=== PATIENT | female | born 1940 | race Two or more races ===

== ENCOUNTER 2016-11-20 09:55 | Day surgery (SDC) | payer MEDICARE, BC ==
--- NOTE | 2016-11-17 22:32 | HP ---
ADMITTING HISTORY AND PHYSICAL: DATE OF ADMISSION: 11/20/16 ADMITTING DIAGNOSES: 1. Left hydronephrosis. 2. 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 PLANNED PROCEDURE: Left retrograde, left ureteroscopy, ureteral biopsy, and left stent insertion. SURGEON: Bari Gupta MD HISTORY OF PRESENT ILLNESS: Yue Hogue is a 76-year-old nonsmoking female who has had left lower quadrant pain for the last 3 to 4 months. She was recently evaluated by Aline Eddy and a pelvic ultrasound was obtained. During the pelvic ultrasound, she was noted to have left hydronephrosis and a dilated left ureter. I saw her and subsequently obtained a CT urogram because of suspicion of some sort of chronic process causing the left hydronephrosis and the CT urogram is highly suspicious for transitional cell neoplasm involving the left ureter. She is now being brought in for further evaluation and management. PAST MEDICAL HISTORY: Significant for: 1. Diabetes mellitus. 2. Hypertension. 3. High cholesterol. PAST SURGICAL HISTORY: Unremarkable. MEDICATIONS: On admission: 1. Tylenol 500 mg p.r.n. for pain. 2. Amlodipine 5 mg daily. 3. Atorvastatin 20 mg daily. 4. Famotidine 10 mg daily. 5. Hydrochlorothiazide 12.5 mg daily. 6. Metformin 500 mg, which is currently on hold. ALLERGIES: An intolerance is ASPIRIN. SOCIAL HISTORY: Smoking history: Nonsmoker. PHYSICAL EXAMINATION GENERAL: Reveals a frail elderly lady. VITAL SIGNS: Blood pressure is 150/80, pulse 84 per minute, temperature 97.1, oxygen saturation 98% on room air. LUNGS: Clear bilaterally. CARDIOVASCULAR: Regular rate and rhythm. S1, S2. ABDOMEN: Soft with mild left flank tenderness. I reviewed the CT scan and had a detailed discussion with the patient and her regarding the probable diagnosis of transitional cell carcinoma involving the left ureter. Obviously, I will need to visually inspect the ureter and also try to obtain a biopsy to get histologic diagnosis and also to try and relieve the obstruction by placing a stent in the left ureter. I have also explained to them that there is a small possibility that I may not be able to place a stent depending on the extent of the mass and the degree of obstruction, and in that case she may require placement of a left nephrostomy tube. PLAN: Left ureteroscopy, left retrograde, left ureteral biopsy and left stent insertion. CC: Mukesh Felton MD; Aline Eddy NP * [id number]/[facility] #: [id number] [facility] HOSPITALYoanna
[~2016-11-20 09:55] MED LIST: Buffered Lidocaine 1% SYR 3ML* 3 ML/SYR SYRINGE INTRADERM ONE; Famotidine IV* 10 MG/ML 2 ML (20 mg) IV ONE; Iohexol 180 (CONTRAST) 10 ML SDV IV ONE; NS 0.9% 1000 ML* 1,000 ML IV SCH
[2016-11-20] MEDS ORDERED: Famotidine IV* 10 MG/ML 2 ML (20 mg) ONE (10:09)
[2016-11-20] MEDS ORDERED: Levofloxacin 500 MG IVPREMIX(* 500 MG/100 ML BAG IVPB ONE (10:09)
[2016-11-20] MEDS ORDERED: fentaNYL* 50 MCG/ML 2 ML VIAL (100 MCG VIAL) ONE (10:52)
[2016-11-20] MEDS ORDERED: Midazolam* 1 MG/ML 2 ML VIAL (2 MG) ONE (10:52)
[2016-11-20] MEDS ORDERED: Ketorolac INJ* 30 MG/ML 1 ML VIAL ONE (12:14)
[2016-11-20] MEDS ORDERED: Propofol* 10 MG/ML 20 ML BTL IV PUSH ONE (12:14)
[2016-11-20] MEDS ORDERED: Dexamethasone IV* 4 MG/ML 1 ML (4 MG) ONE (12:14)
[2016-11-20] MEDS ORDERED: Ondansetron INJ* 2 MG/ML VIAL ONE (12:14)
[2016-11-20] MEDS ORDERED: Lidocaine 2% PF * 5 ML VIAL ONE (12:14)
[2016-11-20] MEDS ORDERED: oxyCODONE/Acetamin 5/325 MG* TAB PO PRN (12:21)
[2016-11-20] MEDS ORDERED: Acetaminophen TAB* 325 MG PO PRN (12:21)
[2016-11-20] MEDS ORDERED: DiMENhydriNATE IV* 50 MG/ML VIAL IV PUSH PRN (12:21)
[2016-11-20] MEDS ORDERED: Furosemide IV* 10 MG/ML 2 ML VIAL (20 MG) ONE (12:30)
[2016-11-20] MEDS ORDERED: Iohexol 180 (CONTRAST) 10 ML SDV IV ONE (13:33)
[2016-11-20] MEDS ORDERED: HYDROmorphone INJ* 1 MG/ML CARPUJECT SYRINGE ONE (13:47)
[2016-11-20] MEDS: HYDROmorphone INJ* 1 MG/ML CARPUJECT SYRINGE IV PRN ×2 (13:48→14:19)
--- NOTE | 2016-11-20 14:22 | RAD ---
INDICATION: LEFT retrograde pyelogram, biopsy, ureteral stent placement. LEFT ureteral tumor. COMPARISON: November 16, 2016 CT. TECHNIQUE: 29 seconds fluoroscopy. FINDINGS: Long segment lobular filling defect in the mid LEFT ureter corresponding with ureteral tumor on CT. Region of tumor/ureteral stenosis crossed retrograde with a wire. Catheter advanced. Retrograde pyelogram demonstrates severe LEFT pelvicaliectasis. LEFT ureteral stent placed. IMPRESSION: Procedural fluoroscopy. CPT II Codes: 6045F
[2016-11-20 16:14] VITALS: BP 120/75
--- NOTE | 2016-11-21 05:43 | OP ---
DATE OF OPERATION: 11/20/16 [facility] DATE OF : 36 SURGEON: Bari Gupta MD ANESTHESIOLOGIST: Dr. Townsend. ANESTHESIA: General. PRE-OP DIAGNOSES: 1. Severe left hydronephrosis. 2. 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 POST-OP DIAGNOSES: 1. Severe left hydronephrosis. 2. 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 OPERATIVE PROCEDURE: Cystoscopy, left retrograde pyelogram, left ureteroscopy, and biopsy of ureteral lesion and left stent insertion. INDICATIONS: Yue Hogue is a 76-year-old lady who was evaluated because of findings of left hydronephrosis. A CT scan was suspicious for transitional cell carcinoma involving the left ureter. COMPLICATIONS: None. SPECIMENS: 1. Washings from the left ureter for cytology. 2. Biopsies, left ureteral lesion. STENTS USED: 7-Emirati, 28-cm silicone stent, left ureter. OPERATIVE FINDINGS: 1. Normal-appearing bladder. 2. Complete obstruction, left ureter, secondary to a soft tissue mass occupying the entire left mid ureter with severe proximal left hydronephrosis. DESCRIPTION OF PROCEDURE: After induction of general anesthesia, the patient was placed in dorsal lithotomy position. Sequential compression devices were in place and functioning. Initial cystoscopy revealed a normal-appearing bladder. There was clear efflux noted from the right orifice. There was no efflux noted from the left orifice suggesting a complete obstruction. A guidewire was advanced into the left distal ureter. Initial retrograde pyelogram revealed no progression of contrast beyond the mid ureter. Multiple attempts at advancing a guidewire were unsuccessful as the wire coiled back on itself. Next, I elected to proceed with left ureteroscopy. The distal 3 to 4 cm of the ureter was normal but just above this there was an obvious soft tissue mass occupying the entire lumen of the ureter. Under direct vision, a guidewire was passed through the soft tissue mass into the proximal ureter and subsequent retrograde injection of contrast confirmed proper placement of the wire. Once this was done, I was able to dilate the ureter initially to 4- Emirati and subsequently to 8-Emirati and then the ureteroscope was advanced further. Washings were obtained and sent for cytology. Using a biopsy forceps , biopsies were obtained from this mass which visually had the appearance of a transitional cell carcinoma. As is usual with the biopsies obtained from the ureter, the specimens are fairly small and hopefully enough to be able to obtain a tissue diagnosis. A 7-Emirati 28-cm silicone stent was then introduced and advanced under direct vision under fluoroscopic monitoring with good proximal and distal positioning obtained. The plan is to await the results of the histopathology. If this is not conclusive, then I would bring her back in a couple of weeks once the ureter has been passively dilated with the stent and try to get more tissue specimen. CC: LITTLE Ware; Dr. Mukesh Felton; Dr. Bari Gupta* [id number]/[facility] #: [id number] [facility]ITALD
== END 2016-11-20 16:27 | disposition home or self-care (01) ==
LOC: OR 09:55
PROVIDERS: ATTEND Urology
DX: C66.2 Malignant neoplasm of left ureter (principal); N13.1 Hydronephrosis with ureteral stricture, not elsewhere classified; E11.9 Type 2 diabetes mellitus without complications; I10 Essential (primary) hypertension; E78.00 Pure hypercholesterolemia, unspecified; D64.9 Anemia, unspecified
CPT/HCPCS: 74420; 88112; 88305; C1876; J1100; J1170; J1885; J1940; J1956; J2250; J2405; J2704; J3010

== ENCOUNTER 2017-04-28 07:55 | Day surgery (SDC) | payer MEDICARE, BC ==
--- NOTE | 2017-04-26 12:06 | HP ---
CC: Dr. Radha Navarro; Tiago Patel MD, [facility] * ADMITTING HISTORY AND PHYSICAL: DATE OF ADMISSION: 04/28/17 ADMITTING DIAGNOSIS: Transitional cell carcinoma, left ureter. PLANNED PROCEDURE: Left retrograde, left ureteroscopy, possible biopsy and left ureteral stent replacement. SURGEON: Dr. Gupta. HISTORY OF PRESENT ILLNESS: Yue Hogue is a 77-year-old lady who had been evaluated and noted to have a high-grade transitional cell carcinoma in the left ureter causing left hydronephrosis. She had undergone stent insertion on 11/20/16 and then subsequently was treated with chemotherapy by Dr. Navarro. She is now being brought in for left ureteroscopy, possible biopsy and stent replacement. PAST MEDICAL HISTORY: Significant for: 1. Transitional cell carcinoma, left ureter. 2. Diabetes type 2. 3. Hyperlipidemia. 4. Hypertension. MEDICATIONS ON ADMISSION: 1. Amlodipine 5 mg daily. 2. Atorvastatin 20 mg daily. 3. Colace 100 mg daily. 4. Fentanyl patch transdermal q.72 hours. 5. K-Courtney 20 mEq daily. 6. Magnesium oxide 400 mg b.i.d. 7. Zofran on a p.r.n. basis. ALLERGIES AND INTOLERANCES: ASPIRIN. REVIEW OF SYSTEMS: She denies any chest pain or shortness of breath. PHYSICAL EXAMINATION GENERAL: Reveals a pleasant elderly lady who is alert and oriented. VITAL SIGNS: Blood pressure is 159/62; pulse 77 per minute, respirations 16 per minute. LUNGS: Clear bilaterally. CARDIOVASCULAR: Regular rate and rhythm. S1, S2. ABDOMEN: Soft with mild left flank tenderness. 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 PLAN/RECOMMENDATIONS: The plan is for left retrograde, left uteroscopy, possible biopsy, and left stent replacement. [id number]/[facility] #: [id number] [facility]
[~2017-04-28 07:55] MED LIST changes: +Buffered Lidocaine 0.9% SYRIN* 5 ML/SYR SYRINGE INTRADERM ONE; -Buffered Lidocaine 1% SYR 3ML* 3 ML/SYR SYRINGE INTRADERM ONE; -Iohexol 180 (CONTRAST) 10 ML SDV IV ONE; -NS 0.9% 1000 ML* 1,000 ML IV SCH
[2017-04-28] MEDS ORDERED: fentaNYL* 50 MCG/ML 2 ML VIAL (100 MCG VIAL) ONE ×2 (08:20→10:35)
[2017-04-28] MEDS ORDERED: Midazolam* 1 MG/ML 2 ML VIAL (2 MG) ONE (08:20)
[2017-04-28] MEDS ORDERED: Famotidine IV* 10 MG/ML 2 ML (20 mg) ONE (08:58)
[2017-04-28] MEDS ORDERED: cefTRIAXone(*) 2 GM ADDV.VIAL IVPB ONE (08:58)
[2017-04-28] MEDS ORDERED: Iohexol 180 (CONTRAST) 10 ML SDV IV ONE ×2 (08:59→09:48)
[2017-04-28] MEDS ORDERED: oxyCODONE TAB* 5 MG TAB PO PRN (09:45)
[2017-04-28] MEDS ORDERED: fentaNYL* 50 MCG/ML 2 ML VIAL (100 MCG VIAL) IV PRN (09:45)
[2017-04-28] MEDS ORDERED: Acetaminophen TAB* 325 MG PO PRN (09:45)
[2017-04-28] MEDS ORDERED: DiMENhydriNATE IV* 50 MG/ML VIAL IV PUSH PRN (09:45)
[2017-04-28] MEDS ORDERED: Furosemide IV* 10 MG/ML 2 ML VIAL (20 MG) ONE (09:50)
[2017-04-28] MEDS ORDERED: Ketorolac INJ* 30 MG/ML 1 ML VIAL ONE (09:51)
[2017-04-28] MEDS ORDERED: Propofol* 10 MG/ML 20 ML BTL IV PUSH ONE (09:51)
[2017-04-28] MEDS ORDERED: Ondansetron INJ* 2 MG/ML VIAL ONE (09:51)
[2017-04-28] MEDS ORDERED: EPHEDrine (Pressors)* 50 MG/ML VIAL ONE (09:51)
[2017-04-28] MEDS ORDERED: Dexamethasone IV* 4 MG/ML 1 ML (4 MG) ONE (09:51)
[2017-04-28] MEDS ORDERED: Lidocaine 2% PF * 5 ML VIAL ONE (09:51)
--- NOTE | 2017-04-28 11:55 | RAD ---
INDICATION: LEFT ureteral ureteroscopy, biopsy, washings, retrograde pyelogram, stent placement. COMPARISON: March 01, 2017 CT. TECHNIQUE: 29 seconds fluoroscopy. FINDINGS: LEFT retrograde pyelogram documents moderately severe caliectasis. LEFT ureteral stent placed. IMPRESSION: Procedural fluoroscopy. CPT II Codes: 6045F
[2017-04-28 13:49] VITALS: BP 117/56
--- NOTE | 2017-04-28 21:16 | OP ---
CC: Mukesh Felton MD; Radha Navarro MD; Tiago Patel MD at [facility] * DATE OF OPERATION: 04/28/17 - SDS DATE OF : 36 SURGEON: Dr. Gupta. ANESTHESIOLOGIST: Dr. Townsend. ANESTHESIA: General. PREOPERATIVE DIAGNOSIS: Tumor, left ureter. POSTOPERATIVE DIAGNOSIS: Tumor, left ureter. SURGICAL PROCEDURE: 1. Cystoscopy, left stent removal. 2. Left retrograde pyelogram. 3. Left ureteroscopy and biopsy. 4. Left pyeloscopy. 5. Left stent insertion. COMPLICATIONS: None. STENT USED: An 8.5-Moldovan 28 cm silicone stent, left ureter. OPERATIVE FINDINGS: 1. Normal-appearing bladder. 2. Mild left hydronephrosis. 3. Superficial appearing transitional cell tumor, junction of distal to mid left ureter. 4. Normal appearance of proximal left ureter and normal appearance of left renal pelvis and calyces. INDICATIONS: Yue Hogue is a 77-year-old lady who I had originally evaluated in November 2016. She had undergone ureteroscopy and biopsy for obstructing transitional cell carcinoma of the left ureter. She has had the stent in since November and subsequently received chemotherapy and is now being brought in to further assess the response and for stent change. DESCRIPTION OF PROCEDURE: After induction of general anesthesia, the patient was placed in dorsal lithotomy position. Sequential compression devices were in place and functioning. Initial cystoscopy revealed the stent to be exiting from the left orifice as expected with a normal-appearing bladder. The stent was removed. Left retrograde pyelogram revealed mild fullness of the left collecting system. There were a few filling defects seen in the proximal ureter , which appeared to be air bubbles. A 6-Moldovan semirigid ureteroscope was introduced and advanced under direct vision. The distal 3 to 4 cm of the ureter appeared normal. About 4 to 5 cm above the ureterovesical junction, I could see what appeared to be a superficial transitional cell tumor. Visually, this appeared to be a low-grade process and extended for a length of about 3 to 4 cm from its origin at the junction of the distal to mid left ureter. The ureteroscope was carefully advanced through this area into the proximal ureter, which appeared unremarkable. The proximal 6 to 7 cm of the ureter appeared uninvolved by tumor. The ureteroscope was carefully advanced into the renal pelvis and I could visualize the renal pelvis and the major calyces, which all appeared normal. The ureteroscope was then carefully withdrawn back to the level of the tumor using a biopsy forceps. Biopsies were obtained from this area. As expected, these are fairly tiny pieces and were sent for histopathology. Next, washings were also obtained from the left ureter and sent for cytology. Once this was completed, a new 8.5-Moldovan 28 cm silicone stent was introduced and positioned under fluoroscopy with good proximal and distal positioning obtained. The patient tolerated the procedure satisfactorily and was transferred back to the recovery area in stable condition. [id number]/[facility] #: [id number] [facility]
== END 2017-04-28 13:40 | disposition home or self-care (01) ==
LOC: OR 07:55
PROVIDERS: ATTEND Urology
DX: C66.2 Malignant neoplasm of left ureter (principal); N13.30 Unspecified hydronephrosis; E11.9 Type 2 diabetes mellitus without complications; I10 Essential (primary) hypertension; E78.5 Hyperlipidemia, unspecified; D64.9 Anemia, unspecified
CPT/HCPCS: 74420; 88112; 88305; C1876; J0696; J1100; J1885; J1940; J2250; J2405; J2704; J3010

== ENCOUNTER 2017-08-04 12:00 | Inpatient (IN) | payer MEDICARE, BC ==
[2017-08-04] MEDS ORDERED: Morphine ORAL CONCENTRATE* 5 MG/0.25 ML ORAL.SYRIN PO PRN (16:25)
[2017-08-04] MEDS ORDERED: LORazepam INJ* 2 MG/ML 1 ML VIAL IV PUSH PRN (16:25)
[2017-08-04] MEDS ORDERED: Polyethylene Glycol 3350* 17 GM PACKET PO PRN (16:41)
[2017-08-04] MEDS ORDERED: Simethicone TAB* 80 MG TAB.CHEW PO PRN (16:41)
[2017-08-04] MEDS: Atorvastatin* 20 MG TAB PO SCH ×2 (18:56→19:48)
[2017-08-04] MEDS: amLODIPine TAB* 5 MG PO SCH ×2 (18:57→19:48)
[2017-08-04] MEDS: Enoxaparin(*) 40 MG/0.4 ML SYR SUBCUT SCH ×2 (18:57→19:48)
[2017-08-04 19:52] LABS: EGFR African American 63.6 (>60); EGFR Non-African American 49.5 (>60)
[2017-08-04] MEDS ORDERED: Gadoteridol* (CONTRAST) 279.3 MG/ML 10 ML IV ONE (21:06)
[2017-08-04] MEDS: fentaNYL PATCH 50 MCG/HR TRANSDERM SCH (22:42)
[2017-08-04] MEDS: Morphine INJ* 2 MG/ML 1 ML SYRINGE (TWO MG - NEW SYRINGE VERSION) IV PRN (22:50)
[2017-08-05] MEDS: Acetaminophen TAB* 325 MG PO PRN ×2 (01:41→08:00)
[2017-08-05] MEDS: fentaNYL Patch Check Q Shift 1 NOTE SCH ×2 (06:53→18:36)
[2017-08-05 07:03] LABS: BUN/Creatinine Ratio 25.3 (8-20); Calcium 10.4 mg/dL (8.6-10.3); EGFR African American 69.6 (>60); EGFR Non-African American 54.1 (>60); Potassium 3.7 mmol/L (3.5-5.0)
--- NOTE | 2017-08-05 07:22 | RAD ---
INDICATION: Right hip pain with radiculopathy, iliac crest metastasis. COMPARISON: Comparison is made with a prior outside PET/CT study from June 17, 2017. TECHNIQUE: Axial and coronal T1 and T2-weighted images of the pelvis were obtained. In addition axial and coronal T1-weighted images were obtained following intravenous injection of 12 ml of ProHance nonionic contrast. FINDINGS: There is a large mass involving the right iliac bone measuring 6.4 x 6.2 x 4.4 cm in size. This causes bony expansion and destruction. The mass extends into the adjacent pelvis and laterally invading the right gluteus medius and minimus muscles. The mass extends adjacent to the right sciatic nerve bundle and up to the sacroiliac joint. The mass has progressed significantly in size from the prior PET/CT study. At that time was not well visualized and appeared to only measure approximately 0.8 cm in size. No other focal osseous abnormalities are seen. No enlarged pelvic or inguinal lymph nodes are seen. No free intraperitoneal fluid is noted. The distal portion of a left ureteral stent is noted within the urinary bladder. IMPRESSION: THERE IS A LARGE MASS ARISING IN THE RIGHT ILIAC BONE EXTENDING INTO THE PELVIS AND ADJACENT GLUTEAL MUSCLES SIGNIFICANTLY INCREASED IN SIZE.
--- NOTE | 2017-08-05 07:53 | RAD ---
HISTORY: Right hip pain, right-sided back pain, history of ureteral tumor COMPARISONS: Pelvic MRI dated August 04, 2019, PET/CT dated June 09, 2017 TECHNIQUE: The following sequences were obtained of the lumbar spine: Sagittal and axial T1- and T2-weighted images, coronal T2-weighted images, and sagittal STIR images. Additionally, axial and sagittal T1 weighted images were obtained after contrast enhancement with a gadolinium-based intravenous contrast agent.. FINDINGS: SPINAL CORD, CONUS, AND CAUDA EQUINA: The visualized spinal cord, conus, and cauda equina are normal in caliber, position, and signal intensity. ALIGNMENT: There is mild levoscoliotic curvature of the spine VERTEBRAL BODIES: There is hemangioma of L3. The apparent relative hypoenhancement of L2, L4, and L5 on postcontrast images is felt to represent inhomogeneous fat saturation artifact. There is no bone edema or focal lesion of L2, L4, L5 to suggest metastatic lesion. JOINTS: There is facet hypertrophic change. MUSCULATURE: There is mild fatty infiltration INTERVERTEBRAL DISCS: There is diffuse loss of intervertebral disc height and T2 signal throughout the spine. AXIAL IMAGES: T12-L1: There is no disc herniation, spinal stenosis, or neuroforaminal narrowing. L1-L2: There is no disc herniation, spinal stenosis, or neuroforaminal narrowing. L2-L3: There is no disc herniation, spinal stenosis, or neuroforaminal narrowing. L3-L4: There is bilateral facet hypertrophy. There is no significant neural foraminal narrowing central canal stenosis. L4-L5: There is mild broad-based disc bulge. There is bilateral facet hypertrophy. There is mild bilateral neural foraminal narrowing. There is no significant central canal stenosis. L5-S1: There is bilateral facet hypertrophy. There is broad-based disc bulge with a left lateral recess broad-based disc protrusion measuring 0.5 cm in depth. This abuts the descending left S1 nerve root. There is moderate left neural foraminal narrowing. There is no significant central canal stenosis. SOFT TISSUES: There is a right posterior gluteal mass with extension to the right iliac bone with enhancement of the right iliac bone, incompletely visualized on the current examination, further described on MRI of the pelvis. OTHER: None. IMPRESSION: 1. DEGENERATIVE DISC DISEASE AND OSTEOARTHRITIS. 2. THERE IS LEFT-SIDED DISC PROTRUSION ABUTTING THE DESCENDING LEFT S1 NERVE ROOT. 3. THERE IS A RIGHT ILIAC MASS WITH EXTENSION TO THE ILIAC BONE, FURTHER DESCRIBED ON THE MRI OF THE PELVIS.
[2017-08-05] MEDS: Morphine INJ* 2 MG/ML 1 ML SYRINGE (TWO MG - NEW SYRINGE VERSION) IV PRN ×3 (08:22→21:47)
[2017-08-05] MEDS ORDERED: Bisacodyl SUPP* 10 MG SUPP PR PRN (08:57)
[2017-08-05] MEDS ORDERED: Morphine ORAL CONCENTRATE* 5 MG/0.25 ML ORAL.SYRIN PO PRN (08:59)
--- NOTE | 2017-08-05 09:06 | PN ---
Progress Note - Progress Note Date of Service: 08/05/17 SOAP: Subjective: pain still fairly intolerable. MRI done last night shows MARKED increase in disease over short period of time. no BM in 3 dys. no nausea. very little relief from pain meds Objective: Vital Signs Temp Pulse Resp BP Pulse Ox 98.4 F 68 12 120/49 98 08/05/17 07:36 08/05/17 07:36 08/05/17 08:22 08/05/17 07:36 08/05/17 07:36 sitting up eating breakfast perr eomi op moist cta bl s1 s2 nl soft nt +bs limited Rom right hip/leg 2/2 pain A+O x 3, nonfocal neuro exam Laboratory Results - last 24 hr 08/04/17 08/05/17 19:15 06:36 Sodium 135 Potassium 3.7 Chloride 99 L Carbon Dioxide 30 Anion Gap 6 BUN 27 H 25 H Creatinine 1.07 H 0.99 H Est GFR ( Amer) 63.6 69.6 Est GFR (Non-Af Amer) 49.5 54.1 BUN/Creatinine Ratio 25.3 H Glucose 113 H Calcium 10.4 H Assessment: 77 yo F w metastatic urothelial CA currently on palliative care at home now with a rapidly progressing right iliac crest lesion causing significant pain requiring inpatient admission and urgent radiation consultation. At this point Yue is interested in going to the hospice residence as she does not feel that she and her can manage at home. I think this is completely appropriate given the rapid pace at which this tumor has grown. She will need to stay inpatient through her RT course (she can not mobilize to get back and forth). Plan: -to start palliative RT today -increase morphine short acting to 4 mg IV or 15 mg po -palliative care consult -increase bowel regimen -hospice consult -dnr >50 mins spent, >50% in face to face counseling
--- NOTE | 2017-08-05 12:06 | RAD ---
INDICATION: Radiation therapy planning, metastatic disease right iliac crest. COMPARISON: Comparison is made with a prior MRI of the pelvis from August 04, 2017. TECHNIQUE: Contiguous axial sections of the pelvis were obtained with the patient lying on a backboard. FINDINGS: There is a large lytic lesion present in the posterior superior right iliac bone adjacent to the sacroiliac joint. The lesion measures 3.6 x 1.6 cm in size. There is cortical breakthrough along both the medial and lateral cortices extending into the pelvis and right gluteal muscles. No other focal osseous abnormalities are seen. The visualized portion of the small bowel colon appear nondistended. No enlarged pelvic or inguinal lymph nodes are seen. No free intraperitoneal fluid is present. IMPRESSION: 1. CT FOR RADIATION THERAPY PLANNING. 2. LARGE RIGHT ILIAC BONE LYTIC LESION.
[2017-08-05] MEDS: Enoxaparin(*) 40 MG/0.4 ML SYR SUBCUT SCH (16:53)
[2017-08-05] MEDS: Atorvastatin* 20 MG TAB PO SCH (18:18)
[2017-08-05] MEDS: amLODIPine TAB* 5 MG PO SCH (18:18)
[2017-08-06] MEDS: Morphine INJ* 2 MG/ML 1 ML SYRINGE (TWO MG - NEW SYRINGE VERSION) IV PRN (04:28)
--- NOTE | 2017-08-06 05:58 | RADMED ---
CC: Radiation medicine; Mukesh Felton MD; Bari Gupta MD * RADIATION ONCOLOGY INPATIENT CONSULTATION NOTE: DATE OF SERVICE: 08/04/17 REFERRING PHYSICIAN: Radha Navarro MD DIAGNOSIS: Metastatic urothelial carcinoma, AJCC stage IV. Performance status ECOG 3. HISTORY OF PRESENT ILLNESS: Yue Hogue is a 77-year-old woman who presented in November 2016 with left flank and abdominal pain leading to discovery of obstructing mass in the left ureter, with urothelial carcinoma identified on 11/20/16 in the ureteral washings. She underwent stent placement and subsequently received chemotherapy. She was being considered for surgery, but PET/CT was obtained on 06/17/17, which identified retroperitoneal lymph node with hypermetabolic activity and also a small lytic lesion in the right iliac bone, which was hypermetabolic consistent with metastatic disease. She had some pain in that area at that time, but that markedly increased over the past month. She is admitted to the hospital for pain control and MRI scan obtained on 08/04/17 shows marked progressive with extensive destructive mass in the right iliac bone around the sciatic nerve. Despite high dose narcotics, she has significant pain and difficulties with ambulation. She is referred for consideration of palliative radiation therapy. PAST MEDICAL HISTORY: 1. Metastatic urothelial carcinoma, as in history of present illness. 2. History of diabetes. 3. Hyperlipidemia. 4. Hypertension. MEDICATIONS: As per the inpatient record. includes Amlodipine, atorvastsatin, ativan, morphine, methadone, fentanyl. ALLERGIES: No known drug allergies. SOCIAL HISTORY: She is and lives with her , the patient is a never smoker, and does not drink alcohol. FAMILY HISTORY: No history of malignancy reported in her first-degree relatives. REVIEW OF SYSTEMS: As in the history of present illness. Otherwise, a complete review of systems is obtained from the patient without significant additional findings. PHYSICAL EXAMINATION: Vital Signs: Temperature 98.2, pulse rate 70, respiratory rate 16, oxygen saturation 100% on room air, blood pressure 167/62. General: She is awake, alert, and oriented, in no acute distress. Normocephalic/atraumatic. Sclerae are anicteric. Neck: Supple. Full range of motion. Midline trachea. No mass palpable in the neck or thyroid. Lungs: Clear to auscultation bilaterally. Cardiovascular: S1, S2 regular. Abdomen: Soft and nontender. No masses. No organomegaly. Extremities: No cyanosis, clubbing, or edema. There is tenderness to palpation over the right SI joint, with radicular component that she describes. PATHOLOGY AND RADIOLOGY: Reviewed, as in the history of present illness. ASSESSMENT AND PLAN: Yue Hogue is a 77-year-old woman with metastatic urothelial carcinoma and destructive progressive lesion in the right iliac bone causing severe uncontrolled pain. I did review her history as well as pathologic and radiographic findings, and discussed at some length with the patient, as she is already well informed and familiar. We reviewed the option of palliative radiation therapy, and I described the logistics and rationale for that treatment, risks, benefits, and alternatives as well as the acute and long-term frequent and uncommon toxicities. I did answer the patient's questions to the best of my ability. She is inclined to proceed with radiation therapy as discussed, and did sign informed consent. She will undergo CT simulation to facilitate treatment planning. For her situation, recommend 2000 cGy at 400 cGy per fraction, tentative treatment start date 08/05/17. Thank you for giving me the opportunity to participate in the care of this very pleasant patient. [id number]/[facility] #: [id number] [facility]
[2017-08-06 07:12] LABS: Hematocrit 25 % (35-47); Hemoglobin 8.6 g/dl (12.0-16.0); Mean Platelet Volume 8 um3 (7.4-10.4)
[2017-08-06] MEDS: fentaNYL Patch Check Q Shift 1 NOTE SCH ×2 (07:16→19:33)
[2017-08-06] MEDS ORDERED: Senna TAB PO PRN (10:05)
[2017-08-06] MEDS ORDERED: Sodium Phosphate ADULT ENEMA* 118 ml bottle PR PRN (10:19)
[2017-08-06] MEDS: Methadone TAB* 5 MG PO SCH ×2 (11:08→23:06)
[2017-08-06] MEDS: Enoxaparin(*) 40 MG/0.4 ML SYR SUBCUT SCH (17:36)
[2017-08-06] MEDS: Atorvastatin* 20 MG TAB PO SCH (17:37)
[2017-08-06] MEDS: amLODIPine TAB* 5 MG PO SCH (17:37)
--- NOTE | 2017-08-06 19:52 | CONS ---
CC: Mukesh Felton MD; Radha Navarro MD * PALLIATIVE CARE CONSULTATION: DATE OF CONSULT: 08/06/17 PRIMARY CARE PHYSICIAN: Mukesh Felton MD. ONCOLOGIST: Radha Navarro MD REFERRING PHYSICIAN: Radha Navarro MD REASON FOR CONSULTATION: Evaluation for hospice. HOSPITAL COURSE: This is a 77-year-old female with past medical history of metastatic urothelial carcinoma, who presented from [facility] admitted on 08/04/17 for refractory right hip pain. The patient was diagnosed back in November 2016 for left flank and abdominal pain and found to have an obstructing mass in the left ureter with urothelial carcinoma. She underwent stent placement and 8 rounds of chemotherapy. She was being evaluated in [place] for surgery; however, a PET scan in May showed retroperitoneal lymph node with hypermetabolic activity and a small lytic lesion on the right iliac bone. She states the past month is when the pain started in her right hip and has gotten progressively worse to the point that it is unbearable and her medications do not seem to be keeping it under control and she is having limited ability to perform her activities of daily living including mobility and sitting up in and out of the bed. She is still ambulating with a walker but has difficulty. A repeat MRI scan on 08/04/17 showed marked progressive growth of this lesion to about 6 cm from 8 mm back on 06/20/17. She was evaluated by Radiation Oncology and she was deemed appropriate for palliative radiation for pain control and she received her first round on 08/05/17. She was planning to receive a total of 6 rounds. When discussing with her, she states that she lives in the independent [facility]. Her is frail and older than her and cannot care for her. He does meals but that is the extent of his involvement. She worries that she now needs 24-hour care with this refractory pain and limited mobility and loss of independence. She is very interested in going to the hospice residence when she has completed her radiation therapy. Oncology has recommended staying here until her treatments have been completed due to significant pain with transporting. She is now having issues with constipation. She took a suppository 2 days ago with no relief. She denies any nausea. No changes in her weight. Her appetite has been adequate. No chest pain or shortness of breath. Remaining review of systems is negative. PAST MEDICAL HISTORY: 1. Metastatic urothelial carcinoma, status post stent, chemotherapy and now palliative radiation therapy. 2. History of diabetes. 3. Hyperlipidemia. 4. Hypertension. 5. Essential tremor. INPATIENT MEDICATIONS: 1. Tylenol 650 mg every 6 hours as needed. 2. Amlodipine 5 mg daily. 3. Atorvastatin 20 mg daily. 4. suppository 10 mg per rectum daily as needed. 5. Lovenox 40 mg subcu daily. 6. Fentanyl patch 50 mcg daily. 7. Ativan 0.5 mg IV q.4 hours as needed. 8. Morphine 15 mg p.o. q.2 hours as needed. 9. Morphine IV 4 mg q.4 hours as needed. 10. Zofran 4 mg sublingual every 6 hours as needed. 11. MiraLax 17 g daily as needed. 12. Simethicone 80 mg as needed. ALLERGIES: ASPIRIN, vomiting; LISINOPRIL, coughing; and DUST, develops hives. FAMILY HISTORY: Reviewed, noncontributory. SOCIAL HISTORY: She lives at home with her in [facility]. She ambulates with a walker. She is becoming more dependent of her ADLs. No history of smoking, alcohol, or illicit drug use. She is a vegetarian. Her MOLST form is DNR/DNI. The copy in the computer only has the first page and she is planning to have her bring in the original. REVIEW OF SYSTEMS: A 14-point review of systems reviewed, pertinent positives and negatives as mentioned in the HPI, otherwise negative. PHYSICAL EXAM: Vitals: Temperature 98.8, pulse rate 67, respiratory rate 16, oxygen saturation 97% on room air. Blood pressure 118/45. General: No acute distress. Resting comfortably, sitting up, eating breakfast. DIAGNOSTIC STUDIES/LAB DATA: White count 8.6, hematocrit 25, platelets 284, 000. Sodium 135, potassium 3.7, chloride 99, bicarb 30, BUN 25, creatinine 0.99. Calcium 10.4. Radiographic Data: Pelvic MRI, there is a large mass arising in the right iliac bone extending into the pelvis and adjacent gluteal muscles, significantly increased in size. ASSESSMENT: This is a 77-year-old female with past medical history of metastatic urothelial carcinoma, who presented directly from [facility] for refractory hip pain, found to have an aggressive increase in size of her iliac lytic lesion, who is now undergoing palliative radiation treatment. She will be completing her fifth round of treatment on 08/10/17. She is interested in going to the resident. I spoke with hospice care. They will consider her on Wednesday afternoon, Wednesday morning for placement there. In terms of her pain management, I am going to stop her IV morphine, start her on methadone, continue her fentanyl 50 mcg, start methadone 5 mg p.o. b.i.d. and then increase this as we decrease her fentanyl patch over the next few days. I am also going to start on a more aggressive bowel regimen for her and will wait for her MOLST form to come in to upload the second page and modify it as indicated depending on what it said. She has confirmed that she is a DNR/DNI. Thank you for this consultation. I will follow along with you. TIME SPENT: Greater than 120 minutes spent doing the consultation, more than half the time was spent in direct patient contact. [id number]/CPS #: [id number] [place]
[2017-08-06] MEDS: Polyethylene Glycol 3350* 17 GM PACKET PO SCH (21:24)
[2017-08-06] MEDS: Acetaminophen TAB* 325 MG PO PRN (21:31)
[2017-08-06] MEDS: Docusate CAP* 100 MG PO SCH (21:33)
[2017-08-07] MEDS: Acetaminophen TAB* 325 MG PO PRN ×3 (06:04→22:04)
[2017-08-07] MEDS: fentaNYL Patch Check Q Shift 1 NOTE SCH ×2 (07:10→18:28)
[2017-08-07] MEDS: Methadone TAB* 5 MG PO SCH ×2 (10:29→21:46)
[2017-08-07] MEDS: Polyethylene Glycol 3350* 17 GM PACKET PO SCH (10:30)
[2017-08-07] MEDS: Docusate CAP* 100 MG PO SCH ×2 (10:30→21:46)
[2017-08-07] MEDS: Enoxaparin(*) 40 MG/0.4 ML SYR SUBCUT SCH (17:10)
[2017-08-07] MEDS: fentaNYL PATCH 50 MCG/HR TRANSDERM SCH (21:42)
[2017-08-07] MEDS: Atorvastatin* 20 MG TAB PO SCH (21:45)
[2017-08-07] MEDS: amLODIPine TAB* 5 MG PO SCH (21:45)
[2017-08-08] MEDS: Acetaminophen TAB* 325 MG PO PRN ×3 (04:23→22:04)
[2017-08-08] MEDS: fentaNYL Patch Check Q Shift 1 NOTE SCH ×2 (06:55→19:14)
[2017-08-08] MEDS: Polyethylene Glycol 3350* 17 GM PACKET PO SCH (10:13)
[2017-08-08] MEDS: Docusate CAP* 100 MG PO SCH ×2 (10:15→20:37)
[2017-08-08] MEDS: Methadone TAB* 5 MG PO SCH ×3 (10:16→22:05)
[2017-08-08] MEDS: Ondansetron ODT TAB* 4 MG SL PRN (17:07)
[2017-08-08] MEDS: Enoxaparin(*) 40 MG/0.4 ML SYR SUBCUT SCH (17:10)
[2017-08-08] MEDS ORDERED: amLODIPine TAB* 5 MG PO SCH (21:00)
[2017-08-08] MEDS ORDERED: Atorvastatin* 20 MG TAB PO SCH (21:00)
[2017-08-09] MEDS: Methadone TAB* 5 MG PO SCH ×3 (05:49→22:14)
[2017-08-09] MEDS: fentaNYL Patch Check Q Shift 1 NOTE SCH ×2 (06:48→18:00)
[2017-08-09] MEDS: Acetaminophen TAB* 325 MG PO PRN ×3 (06:56→22:15)
[2017-08-09] MEDS: Ondansetron ODT TAB* 4 MG SL PRN (11:10)
[2017-08-09] MEDS ORDERED: Prochlorperazine TAB* 10 MG PO PRN (12:46)
[2017-08-09] MEDS ORDERED: Ondansetron ODT TAB* 4 MG SL PRN (12:47)
[2017-08-09] MEDS ORDERED: Famotidine TAB* 20 MG PO SCH (13:00)
[2017-08-09] MEDS: Docusate CAP* 100 MG PO SCH ×2 (13:55→20:53)
[2017-08-09] MEDS: Simethicone TAB* 80 MG TAB.CHEW PO SCH ×2 (13:57→20:53)
[2017-08-09] MEDS: Polyethylene Glycol 3350* 17 GM PACKET PO SCH (13:59)
--- NOTE | 2017-08-09 15:03 | PN ---
Progress Note - Progress Note Date of Service: 08/09/17 SOAP: Subjective: []Seen and examined after RT, approx. 1230. Feeling terrible still. Lots of pain and developed nausea yesterday. Rare emesis. Still constipated and asked about a suppository. Lots of gas and some reflux pain. Seems to be tolerating RT well. Will be offered a bed at the hospice residence and she is very very grateful for this. Medications: Acetaminophen (Tylenol Tab*) 650 mg PO Q4H PRN PRN Reason: pain or headache Last Admin: 08/09/17 14:02 Dose: 650 mg Amlodipine Besylate (Norvasc Tab*) 5 mg PO 2100 [facility] Last Admin: 08/08/17 20:29 Dose: 5 mg Atorvastatin Calcium (Lipitor*) 20 mg PO 2100 [facility] Last Admin: 08/08/17 20:28 Dose: 20 mg Bisacodyl (Dulcolax Supp*) 10 mg NE DAILY PRN PRN Reason: CONSTIPATION Last Admin: 08/05/17 16:57 Dose: 10 mg Docusate Sodium (Colace Cap*) 100 mg PO BID [facility] Last Admin: 08/09/17 13:55 Dose: 100 mg Enoxaparin Sodium (Lovenox(*)) 40 mg SUBCUT Q24H [facility] Last Admin: 08/08/17 17:10 Dose: 40 mg Famotidine (Pepcid Tab*) 20 mg PO DAILY [facility] Last Admin: 08/09/17 13:56 Dose: 20 mg Fentanyl (Duragesic Patch 50 Mcg/Hr*) 50 mcg TRANSDERM Q72H [facility] Last Admin: 08/07/17 21:42 Dose: 50 mcg Lorazepam (Ativan Inj*) 0.5 mg IV PUSH Q4H PRN PRN Reason: anxiety/insomnia Methadone HCl (Dolophine Tab*) 5 mg PO Q8HR [facility] Last Admin: 08/09/17 13:56 Dose: 5 mg Morphine Sulfate (Morphine Oral Concentrate*) 15 mg PO Q2H PRN PRN Reason: PAIN Ondansetron HCl (Zofran Odt Tab*) 4 mg SL Q4HR PRN PRN Reason: NAUSEA/VOMITING Pharmacy Profile Note (Fentanyl Patch Check Q Shift) 1 note N/A 0700,1900 [facility] Last Admin: 08/09/17 06:48 Dose: 1 note Polyethylene Glycol/Electrolytes (Miralax*) 17 gm PO DAILY [facility] Last Admin: 08/09/17 13:59 Dose: 17 gm Prochlorperazine (Compazine Tab*) 10 mg PO Q6HR PRN PRN Reason: NAUSEA Senna (Senokot Tab*) 2 tab PO BEDTIME PRN PRN Reason: CONSTIPATION Simethicone (Mylicon Tab*) 80 mg PO TID [facility] Last Admin: 08/09/17 13:57 Dose: 80 mg Sodium Biphosphate/Sodium Phosphate (Fleet Enema*) 1 bottle NE DAILY PRN PRN Reason: CONSTIPATION Objective: [] Vital Signs Temp Pulse Resp BP Pulse Ox 98.9 F 71 18 110/48 96 08/09/17 08:01 08/09/17 08:01 08/09/17 13:56 08/09/17 08:01 08/09/17 08:01 A&Ox3, EOMI, RODRIGUEZ, neuro grossly non-focal HRR LS clear with non-labored breathing ++BS, abd. soft and non-tender Assessment: []77 yo female with progressive ureteral cancer now receiving palliative RT to hip and plan for d/c to hospice residence tomorrow. Plan: []1. Add Famotidine for reflux pains 2. Can try ativan for nausea 3. D/C meds that are not providing comfort 4. pain meds modified by palliative team, question if methadone is causing nausea, will hold off on adjusting for now
[2017-08-09] MEDS ORDERED: LORazepam INJ* 2 MG/ML 1 ML VIAL IV PUSH PRN (15:04)
[2017-08-09] MEDS: Enoxaparin(*) 40 MG/0.4 ML SYR SUBCUT SCH (18:33)
[2017-08-10] MEDS: Acetaminophen TAB* 325 MG PO PRN (06:17)
[2017-08-10] MEDS: Methadone TAB* 5 MG PO SCH (06:17)
[2017-08-10] MEDS: fentaNYL Patch Check Q Shift 1 NOTE SCH (06:55)
[2017-08-10 07:13] VITALS: BP 141/55
--- NOTE | 2017-08-10 09:06 | DS ---
- Discharge Summary ADMIT DATE:08/05/2017 DISCHARGE DATE: 08/10/17 DISCHARGE DIAGNOSIS: 1. Metastatic urothelial carcinoma with pain crisis 2. metastatic lesion to right iliac crest sp palliative radiation therapy DISCHARGE MEDICATIONS: Home Medications Medication Instructions Recorded Confirmed Type Simethicone [Gas-X] 80 mg PO QPM PRN 04/21/17 08/04/17 History Polyethylene Glycol 3350* 17 gm PO DAILY 08/04/17 08/04/17 History [Miralax*] Acetaminophen TAB* [Tylenol TAB*] 650 mg PO Q4H PRN tab 08/10/17 Rx Bisacodyl SUPP* [Dulcolax Supp*] 10 mg AL DAILY PRN #30 supp 08/10/17 Rx Docusate CAP* [Colace Cap*] 100 mg PO BID cap 08/10/17 Rx Methadone TAB* [Dolophine TAB*] 5 mg PO Q8HR #15 tab MDD 15 08/10/17 Rx Ondansetron ODT TAB* [Zofran 4 MG 4 mg SL Q4HR PRN #30 tab 08/10/17 Rx Odt TAB*] Senna TAB* [Senokot TAB*] 2 tab PO BEDTIME PRN #60 tab 08/10/17 Rx Sodium Phosphate ADULT ENEMA* 1 bottle AL DAILY PRN #10 btl 08/10/17 Rx [Fleet Enema*] fentaNYL PATCH 25 MCG/HR* 50 mcg TRANSDERM Q72H #10 patch 08/10/17 Rx [Duragesic PATCH 25 Mcg/Hr*] MDD 50 mcg HOSPITAL COURSE: Yue has a history of metastatic urothelial carcinoma and recently decided to pursue palliative measures only. She developed progressive right hip pain and came to our office in pain crisis. She was admitted for IV pain control. Imaging showed marked progression of her right iliac crest lesion from 8 mm to 65 mm in only 8 weeks. She was seen in consultation by radiation oncology and has had 5 days of palliative RT. She was also seen by palliative care and hospice and transitioned from PO morphine to methadone. Her pain is relatively well controlled as long as she does not ambulate at which point it is a 5. She will be discharged to the hospice residence today. >60 mins spent, >50% in face to face counseling
[2017-08-10] MEDS: Polyethylene Glycol 3350* 17 GM PACKET PO SCH (09:13)
[2017-08-10] MEDS: Docusate CAP* 100 MG PO SCH (09:16)
[2017-08-10] MEDS: Simethicone TAB* 80 MG TAB.CHEW PO SCH (09:18)
== END 2017-08-10 12:10 | disposition hospice, home (50) | DRG 543 ==
LOC: MED 12:00 → OBSVTOIN 08-05 12:00
PROVIDERS: ADMIT Internal Medicine Hematology & Oncology; ATTEND Internal Medicine Hematology & Oncology
PROC: DPY87ZZ Contact Radiation of Pelvic Bones (ICD-10-PCS; principal; 2017-08-05)
DX: C79.51 Secondary malignant neoplasm of bone (principal); C66.9 Malignant neoplasm of unspecified ureter; E11.9 Type 2 diabetes mellitus without complications; I10 Essential (primary) hypertension; E78.5 Hyperlipidemia, unspecified; R59.0 Localized enlarged lymph nodes; G89.3 Neoplasm related pain (acute) (chronic); Z66 Do not resuscitate; Z88.8 Allergy status to other drugs, medicaments and biological substances
CPT/HCPCS: 36415; 72158; 72197; 77014; 80048; 82565; 84520; 85014; 85018; 85049; 99214; 99219; A9270-GY; A9579; G0378; G0463; J1650; J2270; Q0164